=== PATIENT | male | born 1955 | race Asian ===

== ENCOUNTER 2024-04-05 12:32 | Emergency (ER) | payer BC, SELFPAY ==
[2024-04-05 12:37] VITALS: BP 176/109
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
[2024-04-05] MEDS: TYLENOL 1000 MG PO (13:47)
[2024-04-05] MEDS: LIDOCAINE 4% PATCH 1 PATCH TOPICAL (13:47)
[2024-04-05] MEDS: TORADOL 30 MG IM (13:48)
[2024-04-05 14:24] VITALS: BP 125/79
== END 2024-04-05 14:28 | disposition home or self-care (01) ==
LOC: EMR 12:32
PROVIDERS: EMERGENCY PHYSICIAN Emergency Medicine
DX: M54.50 Low back pain, unspecified (principal); I10 Essential (primary) hypertension; E78.5 Hyperlipidemia, unspecified
CPT/HCPCS: 99284; 96372; 72110

== ENCOUNTER 2024-04-07 15:57 | Emergency (ER) | payer BC, SELFPAY ==
[2024-04-07 15:59] VITALS: BP 165/121
[2024-04-07] MEDS: DILAUDID 1 MG IV (16:52)
[2024-04-07 17:05] LABS: % Basophils 0.3 % (0-2); % Immature Granulocytes 0.2 % (0-0.5); % Lymphocytes 10.8 % (20.5-51.1); % Monocytes 4.9 % (1.7-9.3); % Neutrophils 83.8 % (42.2-75.2); Absolute Lymphocytes 0.9 10^3/uL (1.2-3.4); Absolute Monocytes 0.4 10^3/uL (0.1-0.6); Absolute Neutrophils 7.3 10^3/uL (1.4-6.5); Hematocrit 45.1 % (39.0-52.0); Hemoglobin 15.8 g/dL (13.0-18.0); Mean Corpuscular Hgb 32.2 pg (27.0-31.0); Mean Corpuscular Volume 91.9 fL (80.0-94.0); Mean Platelet Volume 9.4 fL (7.4-10.4); Nucleated Red Blood Cells % 0 % (-); Platelet Count 172 10^3/uL (130-400); Red Blood Cell Count 4.91 10^6/uL (4.70-6.10); Red Cell Dist. Width 12.9 % (11.5-14.5); White Blood Cell Count 8.7 10^3/uL (4.8-10.8)
[2024-04-07 17:18] LABS: ALT (SGPT) 24 U/L (0-50); AST (SGOT) 24 U/L (17-59); Albumin 4.2 g/dl (3.5-5.0); Alkaline Phosphatase 68 U/L (38-126); Blood Urea Nitrogen 23 mg/dl (9-20); Carbon Dioxide 26 mmol/L (22-30); Chloride 102 mmol/L (98-107); Glucose 122 mg/dl (70-99); Potassium 4.2 mmol/L (3.5-5.1); Sodium 141 mmol/L (135-145); Total Bilirubin 0.5 mg/dl (0.2-1.3); Total Protein 6.9 g/dl (6.3-8.2); eGFR > 60.00
--- NOTE | 2024-04-07 18:15 | ED.GENMED ---
History of Present Illness
General
Chief Complaint: Back Pain
Time Seen by Provider: 04/07/24 16:27
History of Present Illness
History of Present Illness:
68-year-old male without significant past medical history presenting for worsening left sided back pain. Patient reports symptoms started 2 weeks ago after he pulled a weed from his garden. He has since had pain radiating down his left lower
extremity. He was seen on the hospital 04/05 which showed an old L1 fracture. He was thought to have sciatica, prescribed naproxen, steroids, lidocaine patches. He went to follow-up with pain management today who was concerned for lumbar
radiculopathy, but concerned that he may need decompression and advised that he come to the hospital for stat MRI and potential admission for pain management. Patient reports difficulty ambulating secondary to pain. Also reports numbness to the
left thigh. Denies any with urination. Does report that he is been constipated. Denies fever. Denies chest pain or difficulty breathing. Denies additional acute medical complaints
Phy Exam
Physical Exam
Physical Exam:
General: Well-appearing, no clinical signs of dehydration, nontoxic and in no acute distress
HEENT: protecting airway
Neck: appears supple
CV: Normal heart rate, regular rhythm, no evidence of cyanosis
Resp: No accessory muscle use, no increased work of breathing, lungs clear to auscultation bilaterally
Abd: Soft and non-distended, no tenderness to palpation
Extremities: No deformities, no swelling, no erythema, generalized tenderness to the lateral aspect of the left lumbar spine. No overlying skin changes. No step-offs. Range of motion to the left lower extremity is grossly intact. Sensation and
pulses intact.
Neuro: alert, no focal neurologic deficit
: deferred
Rectal: deferred
Psych: Normal affect
Skin: Intact
Course
Orders/Labs/Results
Orders:
Orders
04/07/24 16:36
MR Lumbar Without Contrast Urgent
Comment:
Reason For Exam: pain with LLE weakness, difficulty walking
Recent pill cam endoscopy?: No
04/07/24 16:47
HYDROmorphone [Dilaudid] 1 mg IV NOW STA
04/07/24 16:52
Complete Blood Count/With Diff Urgent
Comprehensive Metabolic Panel Urgent
04/07/24 20:06
HYDROmorphone [Dilaudid] 1 mg IV NOW STA
Abnormal Lab Results
04/07/24
16:52
MCH 32.2 H pg
(27.0-31.0)
Absolute Neuts (auto) 7.3 H 10^3/uL
(1.4-6.5)
Absolute Lymphs (auto) 0.9 L 10^3/uL
(1.2-3.4)
Neutrophils % 83.8 H %
(42.2-75.2)
Lymphocytes % 10.8 L %
(20.5-51.1)
BUN 23 H mg/dl
(9-20)
Glucose 122 H mg/dl
(70-99)
04/07/24 16:52
04/07/24 16:52
Vital Signs
Initial and Last Documented VS:
Initial Vital Signs
Temp Pulse Resp BP Pulse Ox
97.7 F 87 18 165/121 97
04/07/24 15:59 04/07/24 15:59 04/07/24 15:59 04/07/24 15:59 04/07/24 15:59
Last Documented Vital Signs
Temp Pulse Resp BP Pulse Ox
97.7 F 71 17 138/83 94
04/07/24 15:59 04/07/24 18:40 04/07/24 18:40 04/07/24 18:40 04/07/24 18:40
MDM/Problems Addressed
MDM/Problems Addressed:
68-year-old male presenting for worsening left-sided back pain and difficulty ambulating after pulling weeds 2 weeks ago. Vital signs are significant for high blood pressure.
On exam, patient in no acute distress, does appear slightly uncomfortable secondary to pain. Patient was sent in by pain management, Dr. Kaur, recommending MRI. On exam, motor and sensation is grossly intact, with lower suspicion for spinal
cord compression. However patient notes that he is now having difficulty with ambulation. Given this information, do feel that MRI is warranted. Patient denies any metal in his body. Will treat pain with Dilaudid.
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
thecal sac at the level of exit of the S1 nerve root. No compromise to the spinal canal. To discussed with neurosurgery on-call, no emergent need for surgery decompression, follow-up outpatient surgery. Patient would prefer to go home with pain
control. Will prescribe Percocet. He notes that he actually has an appointment on Sunday, in 2 days with Krishna. Will provide copy of MRI. Otherwise strict return precautions communicate patient verbalized understanding
*Critical Care Note
Total Time (30-74mins, 75-104mins- exclusive of procedures): Not Applicable
ED Attending Note
-
Portions of this chart may have been created with voice recognition software.� Occasional wrong word or��sound alike� substitutions may have occurred due to the inherent limitations of voice recognition software.
Discharge Plan
Departure
Prescriptions:
No Action
naproxen 500 mg tablet
500 mg PO BID PRN (Reason: Pain) Qty: 30 0RF
Referrals:
UNKNOWN - PT DOES,NOT KNOW [Family Provider] -
Interventions
Interventions:
*Risk Screen - Suicide Last Done: 04/07/24 15:59
*General Assessment Last Done: 04/07/24 15:59
*Neglect/Abuse Screening Last Done: 04/07/24 15:59
ED- Fall Risk Assessment Last Done: 04/07/24 16:03
ED-Musculoskeletal Assessment Last Done: 04/07/24 16:03
Discharge Date and Time
Print Language: BELGIAN
[2024-04-07 18:40] VITALS: BP 138/83
[2024-04-07] MEDS: PERCOCET 5/325 1 TABLET PO (21:48)
== END 2024-04-07 22:14 | disposition home or self-care (01) ==
LOC: EMR 15:57
PROVIDERS: EMERGENCY PHYSICIAN Student in an Organized Health Care Education/Training Program
DX: M54.42 Lumbago with sciatica, left side (principal); M43.17 Spondylolisthesis, lumbosacral region
CPT/HCPCS: 99284; 96374; 72148; 80053; 85025

== ENCOUNTER → 2024-06-11 07:33 | Outpatient (REF) | payer BC, SELFPAY | LOC: RAD 07:33 | PROVIDERS: ATTENDING PHYSICIAN Orthopaedic Surgery Orthopaedic Surgery of the Spine | DX: I82.409 Acute embolism and thrombosis of unspecified deep veins of unspecified lower extremity (principal) | CPT/HCPCS: 93970 ==

== ENCOUNTER → 2024-07-09 13:08 | Outpatient (REF) | payer BC, SELFPAY | LOC: RAD 13:08 | PROVIDERS: ATTENDING PHYSICIAN Registered Nurse | DX: M79.604 Pain in right leg (principal); I87.2 Venous insufficiency (chronic) (peripheral); R22.42 Localized swelling, mass and lump, left lower limb | CPT/HCPCS: 93922; 93971 ==